=== PATIENT | female | born 1975 | race Caucasian/White ===

== ENCOUNTER 2019-05-28 18:44 | Emergency (ER) | payer SELFPAY ==
[~2019-05-28] VITALS: Ht 154.9 cm; Wt 113.4 kg
[2019-05-28 18:47] VITALS: BP 135/90
--- NOTE | 2019-05-28 18:48 | NUR ---
w/c assistance to bed 11
[2019-05-28] MEDS ORDERED: MORPHINE SULFATE 4 MG/ML SYR IVP ONE (18:55)
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
--- NOTE | 2019-05-28 19:03 | NUR ---
spoke with [place] . pd states that the patient is typically required to come into their station in order to make a report. pd states they will return call after speaking with leather products supervisor.
--- NOTE | 2019-05-28 19:09 | NUR ---
Pt report given to JONES Owen. Transfer of care at this time.
--- NOTE | 2019-05-28 19:20 | NUR ---
RECEIVED REPORT FROM GARRY RN, DR. MENENDEZ AT PT BEDSIDE, PT AAOX4, GCS 15, RR EVEN UNLABORED, WILL CONTINUE TO MONITOR CLOSELY.
--- NOTE | 2019-05-28 19:55 | NUR ---
Ira gallo in ED - 05/28/19 at 2001 by MEDBRUNILDA PT TRANSPORTED VIA W/C TO RADIOLOGY
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
[2019-05-28] MEDS ORDERED: LIDOCAINE 1% 500 MG/50 ML VIAL INJ SCH (20:05)
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
[2019-05-28] MEDS ORDERED: LIDOCAINE MPF 1% - 5 mL VIAL 5 ML ONE (20:20)
--- NOTE | 2019-05-28 20:45 | NUR ---
[facility] [facility] AT BEDSIDE
[2019-05-28 22:00] VITALS: BP 121/80
--- NOTE | 2019-05-28 22:00 | NUR ---
Patient discharged with v/s stable. Written and verbal after care instructions given and explained. Pt friend Leticia was called to merchandise pickup/receiving associate pt and stated she will be staying at her friends home for the night. Patient alert, oriented and verbalized understanding of instructions. Ambulatory with steady gait. All questions addressed prior to discharge. ID band removed. Patient advised to follow up with PMD. Rx of MOTRIN 800MG given. Patient educated on indication of medication including possible reaction and side effects. Opportunity to ask questions provided and answered.
== END 2019-05-28 22:00 | disposition home or self-care (01) ==
LOC: MED 18:44
DX: S01.01XA Laceration without foreign body of scalp, initial encounter (principal); Y04.2XXA Assault by strike against or bumped into by another person, initial encounter; Y93.89 Activity, other specified; Y92.89 Other specified places as the place of occurrence of the external cause; Y99.8 Other external cause status
CPT/HCPCS: 12004; 70450; 70486; 90471; 90715; 96374; 99284; J2001; J2270